=== PATIENT | female | born 1985 | race Caucasian/White ===

== ENCOUNTER 2020-03-25 13:04 | Emergency (ER) | payer BC ==
[~2020-03-25] VITALS: Ht 167.6 cm; Wt 56.7 kg
[2020-03-25 13:27] LABS: ABSOLUTE EOSINOPHILS 0.1 thou/uL (0.0-0.7); ABSOLUTE LYMPHOCYTES 2.1 thou/uL (0.8-5.3); ABSOLUTE MONOCYTES 0.4 thou/uL (0.0-1.2); ABSOLUTE NEUTROPHILS 2.8 thou/uL (1.6-8.1); BASOPHILS 0.4 %; HEMATOCRIT 38.9 % (37.0-47.0); HEMOGLOBIN 13.6 gm/dL (12.0-15.0); LYMPHOCYTES 39.5 %; MCH 31.5 pg (26.0-34.0); MCHC 34.9 g/dL (28.0-37.0); MCV 90.2 fL (80.0-100.0); MONOCYTES 7.5 %; MPV 7.8 fl. (7.2-11.1); NUCLEATED RBCS 0 /100WBC; PLATELET COUNT* 227 thou/uL (150-400); POLYS 51.6 %; RBC 4.31 mil/uL (4.20-5.00); RDW-CV 13.1 % (10.5-14.5); WBC 5.4 thou/uL (4.0-11.0)
[2020-03-25 13:31] LABS: URINE BILIRUBIN NEGATIVE (Negative); URINE BLOOD NEGATIVE (Negative); URINE CLARITY CLEAR; URINE COLOR YELLOW; URINE GLUCOSE-RANDOM NEGATIVE (Negative); URINE KETONES NEGATIVE (Negative); URINE LEUKOCYTES-REFLEX NEGATIVE (Negative); URINE NITRITE-REFLEX NEGATIVE (Negative); URINE PROTEIN NEGATIVE (Negative); URINE UROBILINOGEN 0.2 E.U./dl (0.2-1.0)
[2020-03-25 13:40] LABS: CALCIUM 8.8 mg/dL (8.5-10.1); CREATININE 0.9 mg/dL (0.6-1.3); POTASSIUM 3.8 mmol/L (3.5-5.1)
[2020-03-25 13:44] LABS: ALBUMIN 4.1 g/dL (3.4-5.0); TOTAL BILIRUBIN 0.4 mg/dL (<0.1-1.0); TOTAL PROTEIN 7.8 g/dL (6.4-8.2)
[2020-03-25 15:00] VITALS: BP 114/78
--- NOTE | 2020-03-25 16:37 | EKG ---
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 03/25/20 1635 1307 130 Hugo Alvarez MD, FACC /EPI
== END 2020-03-25 15:00 | disposition home or self-care (01) ==
LOC: M.ERS 13:04
PROVIDERS: Physician Assistant
DX: I49.1 Atrial premature depolarization (principal); R07.89 Other chest pain; Z98.890 Other specified postprocedural states

== ENCOUNTER 2020-03-29 18:52 | Emergency (ER) | payer BC ==
[~2020-03-29] VITALS: Ht 167.6 cm; Wt 56.7 kg
[2020-03-29 19:14] LABS: ABSOLUTE EOSINOPHILS 0.1 thou/uL (0.0-0.7); ABSOLUTE LYMPHOCYTES 2.7 thou/uL (0.8-5.3); ABSOLUTE MONOCYTES 0.6 thou/uL (0.0-1.2); ABSOLUTE NEUTROPHILS 3.2 thou/uL (1.6-8.1); BASOPHILS 0.6 %; EOSINOPHILS 0.8 %; HEMOGLOBIN 13.9 gm/dL (12.0-15.0); LYMPHOCYTES 41.1 %; MCH 31.5 pg (26.0-34.0); MCHC 34.7 g/dL (28.0-37.0); MCV 90.7 fL (80.0-100.0); MONOCYTES 8.6 %; MPV 7.7 fl. (7.2-11.1); NUCLEATED RBCS 0 /100WBC; PLATELET COUNT* 232 thou/uL (150-400); POLYS 48.9 %; RBC 4.41 mil/uL (4.20-5.00); RDW-CV 12.8 % (10.5-14.5); WBC 6.5 thou/uL (4.0-11.0)
[2020-03-29 19:22] LABS: CALCIUM 9.3 mg/dL (8.5-10.1); CREATININE 0.9 mg/dL (0.6-1.3); POTASSIUM 3.9 mmol/L (3.5-5.1)
[2020-03-29] MEDS ORDERED: PNV 29-1 TABLE1 EACH PO (19:23)
[2020-03-29 19:28] LABS: ALBUMIN 4.3 g/dL (3.4-5.0); TOTAL BILIRUBIN 0.4 mg/dL (<0.1-1.0); TOTAL PROTEIN 8.3 g/dL (6.4-8.2)
[2020-03-29 20:00] VITALS: BP 110/73
--- NOTE | 2020-03-30 16:36 | EKG ---
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 : 1985 Requested By: Myrna Fernandez Order Number: [id number] MD: Yasir Styles Measurements Intervals [place] Rate: 72 P: 68 OK: 155 QRS: 58 QRSD: 128 T: 34 QT: 404 QTc: 443 Interpretive Statements Sinus rhythm Compared to ECG 03/25/2020 13:07:31 Intraventricular conduction delay now present Atrial premature complex(es) no longer present Electronically Signed On 03-30-2020 16:34:54 CDT by Yasir Styles [email or web address] <ELECTRONICALLY SIGNED> By: Yasir Styles MD, FACC 03/30/20 1634 1950 1950 Yasir Styles MD, FAC /EPI
== END 2020-03-29 20:00 | disposition home or self-care (01) ==
LOC: M.ERS 18:52
PROVIDERS: Physician Assistant
DX: M54.12 Radiculopathy, cervical region (principal); R20.0 Anesthesia of skin; Z98.890 Other specified postprocedural states

== ENCOUNTER → 2020-03-31 | Outpatient (CLI) | payer BC ==
[~2020-03-31] MED LIST: PNV 29-1 TABLE1 EACH PO
--- NOTE | 2020-04-01 16:49 | 24HR ---
[place] [address] HOLTER MONITOR REPORT Name: QUIQUE HAYWARD Room: [facility]#: [id number] Admission: 03/31/20 Attend Phys: Jennie Mckeon Discharge: Date of : 83 Date of Service: 04/01/20 1204 Report #: [id number] THIS REPORT FOR: cc: Jennie Giles NP, Stefany NP Liston, Michael J. 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 The mean heart rate was 78 bpm. The maximum heart rate was 142 bpm corresponding with sinus tachycardia at 1:31 AM. The minimum heart rate was 44 bpm corresponding with sinus bradycardia at 2:18 AM. The patient exhibited tachycardia defined as heart rate greater than 100 bpm 14% of the monitor time. The patient exhibited bradycardia defined as heart rate less than 50 bpm less than 1% of the monitored time. There was no significant underlying supraventricular arrhythmia noted. There were rare premature ventricular contractions that were unifocal. There was no evidence of significant nonsustained or sustained ventricular arrhythmia. There were no episodes of atrial fibrillation or flutter. There were no significant pauses on rhythm. On several occasions the patient noted various types of pain including shooting chest pain, dull chest pain and left jaw pain. The symptoms did not correlate with any [place] [address] HOLTER MONITOR REPORT Name: YESYQUIQUE E Room: [facility]#: [id number] Admission: 03/31/20 Attend Phys: Jennie Mckeon Discharge: Date of : 83 Date of Service: 04/01/20 1204 Report #: [id number] Electronically Signed On 04-01-2020 16:47:12 CDT by Yasir Styles [email or web address] <ELECTRONICALLY SIGNED> By: Yasir Styles MD, [facility] 04/01/20 1647 120 Yasir Styles MD, FACC /EPI
== END ==
LOC: M.CRD 11:00
DX: R42 Dizziness and giddiness (principal)

== ENCOUNTER → 2020-04-09 | Outpatient (CLI) | payer BC | LOC: M.MRI 13:17 | DX: R20.2 Paresthesia of skin (principal); R53.1 Weakness ==

== ENCOUNTER → 2020-04-20 | Outpatient (CLI) | payer BC ==
--- NOTE | 2020-04-20 12:52 | 2DMMODE ---
[place] [address] 2 D/M-MODE ECHOCARDIOGRAM Name: QUIQUE HAYWARD Room: [facility]#: [id number] Admission: 04/20/20 Attend Phys: Hugo Alvarez MD Discharge: Date of : 83 Date of Service: 04/20/20 1250 Report #: [id number] THIS REPORT FOR: cc: Jennie Giles NP, Stefany NP Blick, David R. MD [facility] ~ APPROVED REPORT Study performed: 04/20/2020 07:51:19 EXAM: Comprehensive 2D, Doppler, and color-flow Echocardiogram Patient Location: Out-Patient BSA: 1.64 HR: 56 bpm BP: 108/60 mmHg Other Information Study Quality: Good Indications Chest Pain 2D Dimensions IVSd: 7.43 (7-11mm) LVOT Diam: 19.19 (18-24mm) LVDd: 46.65 mm PWd: 8.37 (7-11mm) Ascending Ao: 27.68 (22-36mm) LVDs: 30.60 (25-40mm) Aortic Root: 22.38 mm Volumes Left Atrial Volume (Systole) LA ESV Index: 15.10 mL/m2 Aortic Valve AoV Peak Mina.: 0.97 m/s AO Peak Gr.: 3.78 mmHg LVOT Max P.62 mmHg AO Mean Gr.: 2.15 mmHg LVOT Mean P.31 mmHg LVOT Max V: 0.81 m/s AO V2 VTI: 21.16 cm LVOT Mean V: 0.53 m/s MARKO (VTI): 2.27 cm2 LVOT V1 VTI: 16.63 cm Mitral Valve E/A Ratio: 1.32 [place] [address] 2 D/M-MODE ECHOCARDIOGRAM Name: QUIQUE HAYWARD Room: [facility]#: [id number] Admission: 04/20/20 Attend Phys: Hugo Alvarez MD Discharge: Date of : 83 Date of Service: 04/20/20 1250 Report #: [id number] MV Decel. Time: 184.40 ms MV E Max Mina.: 0.56 m/s MV PHT: 53.48 ms MVA (PHT): 4.11 cm2 TDI E/Lateral E': 4.31 E/Medial E': 4.67 Medial E' Mina.: 0.12 m/s Lateral E' Mina.: 0.13 m/s Pulmonary Valve PV Peak Mina.: 0.73 m/s PV Peak Gr.: 2.12 mmHg Left Ventricle The left ventricle is normal size. There is normal LV segmental wall motion. There is normal left ventricular wall thickness. Left ventricular systolic function is borderline. LVEF is 45-50%. The left ventricular diastolic function is normal. Right Ventricle The right ventricle is normal size. The right ventricular systolic function is normal. Atria The left atrium size is normal. The right atrium size is normal. Aortic Valve The aortic valve is normal in structure. No aortic regurgitation is present. There is no aortic valvular stenosis. Mitral Valve The mitral valve is normal in structure. There is no mitral valve regurgitation noted. No evidence of mitral valve stenosis. Tricuspid Valve The tricuspid valve is normal in structure. There is trace tricuspid valve regurgitation noted. Pulmonic Valve The pulmonary valve is normal in structure. Mild pulmonic regurgitation. Great Vessels The aortic root is normal in size. IVC is normal in size and collapses >50% [place] [address] 2 D/M-MODE ECHOCARDIOGRAM Name: QUIQUE HAYWARD Room: [facility]#: [id number] Admission: 04/20/20 Attend Phys: Hugo Alvarez MD Discharge: Date of : 83 Date of Service: 04/20/20 1250 Report #: [id number] Pericardium There is no pericardial effusion. <Conclusion> Left ventricular systolic function is borderline. LVEF is 45-50%. <ELECTRONICALLY SIGNED> By: Hugo Alvarez MD, FAC 04/20/20 1250 1250 1250 Hugo Alvarez MD, [facility] /INF
== END ==
LOC: M.CRD 07:49
DX: I37.1 Nonrheumatic pulmonary valve insufficiency (principal); R07.1 Chest pain on breathing

== ENCOUNTER 2021-05-25 10:46 | Emergency (ER) | payer OTHER ==
[~2021-05-25] VITALS: Ht 167.6 cm; Wt 58.1 kg
[2021-05-25] MEDS ORDERED: CEPHALEXIN 250250 M1 PO (11:04)
[2021-05-25] MEDS ORDERED: IBUPROFEN 800800 M1 PO (13:10)
[2021-05-25 13:19] VITALS: BP 117/79
== END 2021-05-25 13:20 | disposition home or self-care (01) ==
LOC: M.ERS 10:46
DX: S92.511A Displaced fracture of proximal phalanx of right lesser toe(s), initial encounter for closed fracture (principal); Z98.890 Other specified postprocedural states; W23.0XXA Caught, crushed, jammed, or pinched between moving objects, initial encounter; Y93.89 Activity, other specified; Y92.89 Other specified places as the place of occurrence of the external cause; Y99.8 Other external cause status